=== PATIENT | male | born 1970 | race Caucasian/White ===

== ENCOUNTER 2017-11-02 21:14 | Inpatient (IN) | payer OTHER ==
[~2017-11-02] VITALS: Ht 168 cm; Wt 90.8 kg
--- NOTE | ~2017-11-02 | CON ---
[place], [place] REPORT OF CONSULTATION NAME: MERLENE BROWN UNIT #: [id number] ROOM: 515 DOCTOR: YOSEF BARRETT,OCTOBER BIRTHDATE: [birth year] DOS: 11/03/2017 HISTORY OF PRESENT ILLNESS: The patient is a 47-year-old male who originally presented with chest pain. He also has a rash of bilateral upper extremities that originally began on his left pinky and extends mainly over both forearms, a little on his upper arms, a couple of spots on the lower back and 2 spots on his forehead. The areas are itchy, quite a few of them are scabbed, not particularly painful. He has had no fevers or chills or sweats. He states he has had no new medications. The rash originally began approximately a week and a half ago. He states he has had no new medications. No change in detergents, lotions, etc. No new clothes that he has worn without washing. He does have a new bed, though he states he purchased it from a factory. He lives alone. No new issues. No issues with bed bugs to his knowledge. He denies any hobbies other than working on his [employer]. No working outside over the last few weeks. No new or different foods. The patient's chest pain has improved, but he has had elevated troponins. He is being worked up. At some point, he may be transferred to [place] or the [place] for cardiac cath. His Valtrex and doxycycline have both been ordered. There was concern for Lyme's as well as shingles. The patient has no pets and has not traveled anywhere recently. He is on medical disability from , served 22 years in the . He was discharged in 2010. PAST MEDICAL HISTORY: As above as well as appendectomy, arthroscopic knee surgery, arthroscopic shoulder surgery, cholecystectomy. SOCIAL HISTORY: He smokes 1-2 cigars per day since he was a teenager. No alcohol or illicit drug use. FAMILY MEDICAL HISTORY: Mother with diabetes. Father of stab wound, also had diabetes. ALLERGIES: No known allergies. LABORATORY DATA: WBCs 10.0, platelets 172. No elevation of his eosinophils or neutrophils. BUN 11, creatinine 0.82. Troponin 0.614. REVIEW OF SYSTEMS: As above in history of present illness. No fevers or chills. No night sweats. No issues with urination. No peripheral edema. No cough or shortness of breath. No peripheral edema. Further review of systems is unremarkable. CURRENT MEDICATIONS: Include doxycycline, Benadryl, Nicotrol, Valtrex, calamine, hydrocortisone topically, Lovenox, Lipitor, Restoril, Zofran, milk of mag, Dulcolax, [place], Tylenol, Vistaril, Nitrostat and aspirin. PHYSICAL EXAMINATION: VITAL SIGNS: Temperature 98.1, pulse 70, respirations 20, BP 117/73: GENERAL: A 47-year-old male, nontoxic in appearance. HEAD, EYES, EARS, NOSE AND THROAT: Normocephalic. No thrush. NECK: Supple. [place], [place] REPORT OF CONSULTATION NAME: MERLENE BROWN UNIT #: [id number] ROOM: [facility] [employer] DOCTOR: YOSEF BARRETTOCTOBER BIRTHDATE: [birth year] LUNGS: Clear to auscultation bilaterally. Respirations even and unlabored. HEART: Regular rhythm. No murmur appreciated. ABDOMEN: Soft, nondistended. EXTREMITIES: No edema or deformity. Bilateral upper extremities with rash, mainly concentrated over hands, forearms and outer lateral arms, on the upper arms. There are no signs of vesicles, no areas that would be suspicious for cellulitis. Also, he has a couple of spots on his lower back. They are raised red itchy bumps and 2 spots close to each other on his forehead. ASSESSMENT AND PLAN: Rash of unknown etiology. At this point, I would suspect a hypersensitivity reaction, though his differential does not have elevation of eosinophils. Certainly, nothing appears to be herpetic in nature or consistent with shingles. We will stop the Valtrex as well as the doxycycline. I have no suspicion of Lyme's. There is certainly no bull's eye lesion at this point as well as the patient denies any scenario in which he could have been exposed. Physical exam is more consistent with something along the lines of contact dermatitis with something like poison geno. Hepatitis panel and human immunodeficiency virus and tox screen have been ordered. A consideration should be given to administering steroids. If he is transferred, dermatologic workup would be recommended that is not available here at this point in time. Case discussed with Dr. Stephanie Cabello. MINDY ARNOLD NAVAS STEPHANIE CABELLO MD CM:CONSTR:REPORT OF CONSULTATION 1826 11/04/17 0254 interface
[2017-11-02 21:19] VITALS: BP 107/72
[2017-11-02 21:27] VITALS: BP 114/75
[2017-11-02 21:36] LABS: BASO # 0.1 10*3/uL (0.0-0.1); BASO % 0.7 % (0.0-1.0); EOS # 0.3 10*3/uL (0.0-0.4); EOS % 2.3 % (1.0-4.0); HEMATOCRIT 43.9 % (42.0-52.0); HEMOGLOBIN 15.1 g/dl (14.0-18.0); LYMPH % 24.8 % (27.0-41.0); MEAN CELL VOLUME 84.6 fl (80.0-94.0); MEAN CORPUSCULAR HGB 29.1 pg (27.0-31.0); MEAN CORPUSCULAR HGB CONC 34.4 g/dl (33.0-37.0); MEAN PLATELET VOLUME 10.6 fl (9.6-12.3); MONO % 7.8 % (3.0-9.0); NEUT # 7.9 10*3/uL (2.3-7.9); NEUT % 64.2 % (47.0-73.0); PLATELET COUNT AUTOMATED 186 10*3/uL (130-400); RED BLOOD COUNT 5.19 10*6/uL (4.50-5.90); RED CELL DISTRI WIDTH 14.9 % (0-14.5); WHITE BLOOD COUNT 12.2 10*3/uL (4.8-10.8)
[2017-11-02 21:51] LABS: ACT PARTIAL THROMBO TIME 25.1 SECONDS (20.8-31.5)
[2017-11-02 21:53] LABS: ALBUMIN 3.5 gm/dl (3.1-4.5); ALKALINE PHOSPHATASE 79 U/L (45-117); BUN 11 mg/dl (7-24); CHLORIDE 106 mmol/L (98-107); CREATININE 0.98 mg/dL (0.70-1.30); POTASSIUM 3.7 mmol/L (3.5-5.1); SGOT/AST 18 IU/L (3-35); SGPT/ALT 28 U/L (12-78); SODIUM 140 mmol/L (136-145); TOTAL PROTEIN 6.7 gm/dL (6.4-8.2)
[2017-11-02 22:00] LABS: TROPONIN I 0.251 ng/ml (<0.045)
[2017-11-02 22:01] VITALS: BP 110/71
[2017-11-02 22:22] VITALS: BP 99/40
[2017-11-02 23:30] VITALS: BP 97/68
[2017-11-03 03:16] LABS: BASO # 0.1 10*3/uL (0.0-0.1); BASO % 0.8 % (0.0-1.0); EOS # 0.3 10*3/uL (0.0-0.4); EOS % 3.1 % (1.0-4.0); HEMATOCRIT 42.9 % (42.0-52.0); HEMOGLOBIN 14.6 g/dl (14.0-18.0); LYMPH # 3.4 10*3/uL (1.3-4.4); LYMPH % 34.4 % (27.0-41.0); MEAN CELL VOLUME 85.1 fl (80.0-94.0); MEAN PLATELET VOLUME 10.3 fl (9.6-12.3); MONO # 0.8 10*3/uL (0.1-1.0); MONO % 8.4 % (3.0-9.0); NEUT # 5.3 10*3/uL (2.3-7.9); NEUT % 53.1 % (47.0-73.0); PLATELET COUNT AUTOMATED 172 10*3/uL (130-400); RED BLOOD COUNT 5.04 10*6/uL (4.50-5.90)
[2017-11-03 03:26] LABS: BUN 11 mg/dl (7-24); CHLORIDE 108 mmol/L (98-107); CREATININE 0.82 mg/dL (0.70-1.30); POTASSIUM 3.5 mmol/L (3.5-5.1); SODIUM 141 mmol/L (136-145)
[2017-11-03 03:31] LABS: CHOLESTEROL 132 mg/dL (<200); HDL CHOLESTEROL 25 mg/dl (40-60); LDL CHOLESTEROL 77 mg/dL (9-159); PHOSPHOROUS 3.4 mg/dL (2.5-4.9); TRIGLYCERIDES 151 mg/dl (<150); VLDL CHOLESTEROL 30 mg/dL (6-40)
[2017-11-03 06:37] LABS: VITAMIN D, 25-HYDROXY 24.1 ng/mL (30-100)
[2017-11-03 08:00] VITALS: BP 121/84
[2017-11-03 12:00] VITALS: BP 104/65
[2017-11-03 16:00] VITALS: BP 117/73
[2017-11-03 18:56] LABS: URINE AMPHETAMINES < 1000 (1000ng/ml); URINE BARBITURATES < 200 (200ng/ml); URINE BENZODIAZEPINES < 200 (200ng/ml); URINE CANNABINOIDS (THC) < 50 (50ng/ml); URINE COCAINE < 300 (300ng/ml); URINE METHADONE < 300 (300ng/ml); URINE OPIATES < 300 (300ng/ml)
[2017-11-03 19:02] LABS: URINE PHENCYCLIDINE < 25 (25ng/ml)
[2017-11-03 20:00] VITALS: BP 131/81
[2017-11-04] VITALS: BP 124/67
[2017-11-04 08:00] VITALS: BP 94/50
[2017-11-04 12:00] VITALS: BP 111/83
[2017-11-04] MEDS ORDERED: VITAMIN D-32000 UNI1 PO (14:52)
[2017-11-04 16:00] VITALS: BP 102/46
[2017-11-04 20:00] VITALS: BP 105/87
[2017-11-05] VITALS: BP 124/82
[2017-11-05 05:07] LABS: HEPATITIS B SURFACE AG Negative (Negative); HEPATITIS C VIRUS ANTIBODY <0.1 s/co (0.0-0.9)
[2017-11-05 07:05] LABS: HIV 1+2 AB + HIV1 P24 AG Non Reactive (Non Reactive)
== END 2017-11-05 07:48 | DRG 281 ==
LOC: ED 21:14 → 5E 22:42 → EDHOLD 22:42 → 5E 23:04
PROVIDERS: Emergency Medicine Emergency Medical Services; Hospitalist; Internal Medicine Cardiovascular Disease; Student in an Organized Health Care Education/Training Program
DX: I21.4 Non-ST elevation (NSTEMI) myocardial infarction (principal); J98.11 Atelectasis; E83.41 Hypermagnesemia; B01.9 Varicella without complication; W57.XXXA Bitten or stung by nonvenomous insect and other nonvenomous arthropods, initial encounter; F43.10 Post-traumatic stress disorder, unspecified; E78.1 Pure hyperglyceridemia; L50.9 Urticaria, unspecified; F17.200 Nicotine dependence, unspecified, uncomplicated; D72.829 Elevated white blood cell count, unspecified; D72.810 Lymphocytopenia; R73.9 Hyperglycemia, unspecified; F32.9 Major depressive disorder, single episode, unspecified; Y93.89 Activity, other specified; Y92.89 Other specified places as the place of occurrence of the external cause; Y99.8 Other external cause status; Z71.6 Tobacco abuse counseling; Z90.49 Acquired absence of other specified parts of digestive tract; Z83.3 Family history of diabetes mellitus; Z91.040 Latex allergy status

== ENCOUNTER 2018-02-14 20:20 | Emergency (ER) | payer OTHER ==
[~2018-02-14] VITALS: Ht 172.7 cm; Wt 86.2 kg
[~2018-02-14 20:20] MED LIST: VITAMIN D-32000 UNI1 PO
[2018-02-14] MEDS ORDERED: NORCO 5-325 TA1 EACH PO (22:39)
== END 2018-02-14 22:59 | disposition home or self-care (01) ==
LOC: ED 20:20
DX: S96.912A Strain of unspecified muscle and tendon at ankle and foot level, left foot, initial encounter (principal); F17.200 Nicotine dependence, unspecified, uncomplicated; Z91.040 Latex allergy status; V89.9XXA Person injured in unspecified vehicle accident, initial encounter; Y93.89 Activity, other specified; Y92.89 Other specified places as the place of occurrence of the external cause; Y99.8 Other external cause status

== ENCOUNTER 2018-09-23 00:07 | Inpatient (IN) | payer OTHER ==
[~2018-09-23] VITALS: Ht 172.7 cm; Wt 99.0 kg
[2018-09-23] VITALS (7 sets, daily range): BP systolic 102–154; BP diastolic 63–106
--- NOTE | ~2018-09-23 | EKG ---
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
--- NOTE | ~2018-09-23 | EKG ---
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
--- NOTE | ~2018-09-23 | EKG ---
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
[~2018-09-23 00:07] MED LIST changes: +NORCO 5-325 TA1 EACH PO
[2018-09-23 00:40] LABS: BASO # 0.1 10*3/uL (0.0-0.1); BASO % 0.7 % (0.0-1.0); EOS # 0.3 10*3/uL (0.0-0.4); EOS % 1.5 % (1.0-4.0); HEMATOCRIT 47.6 % (42.0-52.0); HEMOGLOBIN 16.1 g/dl (14.0-18.0); LYMPH # 2.1 10*3/uL (1.3-4.4); LYMPH % 12.2 % (27.0-41.0); MEAN CELL VOLUME 86.7 fl (80.0-94.0); MEAN CORPUSCULAR HGB 29.3 pg (27.0-31.0); MEAN CORPUSCULAR HGB CONC 33.8 g/dl (33.0-37.0); MEAN PLATELET VOLUME 10.7 fl (9.6-12.3); MONO # 1.5 10*3/uL (0.1-1.0); MONO % 8.6 % (3.0-9.0); NEUT # 13.4 10*3/uL (2.3-7.9); NEUT % 76.7 % (47.0-73.0); PLATELET COUNT AUTOMATED 187 10*3/uL (130-400); RED BLOOD COUNT 5.49 10*6/uL (4.50-5.90); WHITE BLOOD COUNT 17.5 10*3/uL (4.8-10.8)
[2018-09-23 00:50] LABS: ACT PARTIAL THROMBO TIME 25.5 SECONDS (20.8-31.5); INTERNATIONAL NORM RATIO 0.9 (2.0-3.5)
[2018-09-23 01:09] LABS: ALBUMIN 3.4 gm/dl (3.1-4.5); ALKALINE PHOSPHATASE 75 U/L (45-117); BUN 12 mg/dl (7-24); CHLORIDE 106 mmol/L (98-107); CREATININE 1.02 mg/dL (0.70-1.30); POTASSIUM 3.9 mmol/L (3.5-5.1); SGOT/AST 15 IU/L (3-35); SGPT/ALT 35 U/L (12-78); SODIUM 139 mmol/L (136-145)
[2018-09-23 01:10] LABS: TROPONIN I < 0.015 ng/ml (<0.045)
[2018-09-23 03:08] LABS: BILIRUBIN NEGATIVE (NEGATIVE); BLOOD NEGATIVE (NEGATIVE); CLARITY CLEAR (CLEAR); COLOR YELLOW (YELLOW); GLUCOSE NEGATIVE (NEGATIVE); KETONE NEGATIVE (NEGATIVE); LEUKO ESTERASE NEGATIVE (NEGATIVE); NITRITE NEGATIVE (NEGATIVE); PH 5.5 (5.0-9.0); SPECIFIC GRAVITY 1.025 (1.005-1.030); UROBILINOGEN 0.2 E.U./dl (0.2-1.0)
[2018-09-23 03:25] LABS: WBC 0-2 wbc/hpf (0-5)
[2018-09-23 06:13] LABS: BASO # 0.1 10*3/uL (0.0-0.1); BASO % 0.7 % (0.0-1.0); EOS # 0.2 10*3/uL (0.0-0.4); EOS % 1.7 % (1.0-4.0); HEMATOCRIT 45.2 % (42.0-52.0); HEMOGLOBIN 14.7 g/dl (14.0-18.0); LYMPH # 2.6 10*3/uL (1.3-4.4); LYMPH % 18.8 % (27.0-41.0); MEAN CELL VOLUME 87.9 fl (80.0-94.0); MEAN CORPUSCULAR HGB 28.6 pg (27.0-31.0); MEAN CORPUSCULAR HGB CONC 32.5 g/dl (33.0-37.0); MEAN PLATELET VOLUME 10.8 fl (9.6-12.3); MONO # 1.2 10*3/uL (0.1-1.0); MONO % 8.5 % (3.0-9.0); NEUT # 9.6 10*3/uL (2.3-7.9); PLATELET COUNT AUTOMATED 155 10*3/uL (130-400); RED BLOOD COUNT 5.14 10*6/uL (4.50-5.90); WHITE BLOOD COUNT 13.7 10*3/uL (4.8-10.8)
[2018-09-23 06:42] LABS: ALBUMIN 3.1 gm/dl (3.1-4.5); BUN 14 mg/dl (7-24); CHLORIDE 106 mmol/L (98-107); POTASSIUM 3.9 mmol/L (3.5-5.1); SODIUM 138 mmol/L (136-145)
[2018-09-23 06:50] LABS: ALKALINE PHOSPHATASE 68 U/L (45-117); CHOLESTEROL 127 mg/dL (<200); CREATININE 0.98 mg/dL (0.70-1.30); HDL CHOLESTEROL 26 mg/dl (40-60); LDL CHOLESTEROL 63 mg/dL (9-159); PHOSPHOROUS 4.6 mg/dL (2.5-4.9); SGOT/AST 11 IU/L (3-35); SGPT/ALT 30 U/L (12-78); TOTAL PROTEIN 6.3 gm/dL (6.4-8.2); TRIGLYCERIDES 189 mg/dl (<150); VLDL CHOLESTEROL 38 mg/dL (6-40)
[2018-09-23] MEDS ORDERED: ASPIRIN81 M1 PO (11:45)
[2018-09-23] MEDS ORDERED: ATORVASTATIN CA80 M1 PO (11:45)
[2018-09-23] MEDS ORDERED: METOPROLOL SUCC50 M1 PO (11:46)
[2018-09-23] MEDS ORDERED: BRILINTA90 M1 PO (11:47)
[2018-09-23] MEDS ORDERED: VENLAFAXINE75 M1 PO (11:47)
[2018-09-23] MEDS ORDERED: SEROQUEL XR400 MG PO (11:47)
[2018-09-23] MEDS ORDERED: VITAMIN D32000 UNI1 PO (12:11)
[2018-09-23 12:37] LABS: CHOLESTEROL 135 mg/dL (<200); HDL CHOLESTEROL 28 mg/dl (40-60); LDL CHOLESTEROL 75 mg/dL (9-159); TRIGLYCERIDES 162 mg/dl (<150); VLDL CHOLESTEROL 32 mg/dL (6-40)
== END 2018-09-23 13:39 | disposition home or self-care (01) | DRG 313 ==
LOC: ED 00:07 → EDHOLD 01:05 → 4E 01:58
PROVIDERS: Family Medicine; Internal Medicine Cardiovascular Disease; Student in an Organized Health Care Education/Training Program; ADMIT Emergency Medicine
DX: R07.89 Other chest pain (principal); R65.10 Systemic inflammatory response syndrome (SIRS) of non-infectious origin without acute organ dysfunction; F17.210 Nicotine dependence, cigarettes, uncomplicated; E78.1 Pure hyperglyceridemia; R73.9 Hyperglycemia, unspecified; I25.2 Old myocardial infarction; Z90.49 Acquired absence of other specified parts of digestive tract; Z83.3 Family history of diabetes mellitus; Z91.030 Bee allergy status; Z79.899 Other long term (current) drug therapy; Z79.82 Long term (current) use of aspirin; Z71.6 Tobacco abuse counseling; Z68.33 Body mass index [BMI] 33.0-33.9, adult; Z79.1 Long term (current) use of non-steroidal anti-inflammatories (NSAID); Z95.5 Presence of coronary angioplasty implant and graft

== ENCOUNTER 2019-01-09 20:24 | Emergency (ER) | payer OTHER ==
[~2019-01-09] VITALS: Wt 104.3 kg
[~2019-01-09 20:24] MED LIST changes: +ASPIRIN81 M1 PO; +ATORVASTATIN CA80 M1 PO; +BRILINTA90 M1 PO; +METOPROLOL SUCC50 M1 PO; +SEROQUEL XR400 MG PO; +VENLAFAXINE75 M1 PO; +VITAMIN D32000 UNI1 PO
[2019-01-09] MEDS ORDERED: CEPHALEXIN500 M1 PO (20:59)
== END 2019-01-09 21:54 | disposition home or self-care (01) ==
LOC: ED 20:24
DX: S61.032A Puncture wound without foreign body of left thumb without damage to nail, initial encounter (principal); E78.1 Pure hyperglyceridemia; I25.2 Old myocardial infarction; F17.210 Nicotine dependence, cigarettes, uncomplicated; Z90.49 Acquired absence of other specified parts of digestive tract; Z91.030 Bee allergy status; Z79.899 Other long term (current) drug therapy; Z79.82 Long term (current) use of aspirin; W22.8XXA Striking against or struck by other objects, initial encounter; Y93.89 Activity, other specified; Y92.89 Other specified places as the place of occurrence of the external cause; Y99.8 Other external cause status

== ENCOUNTER 2019-04-27 13:47 | Emergency (ER) | payer OTHER ==
[~2019-04-27] VITALS: Ht 172.7 cm; Wt 88.5 kg
[~2019-04-27 13:47] MED LIST changes: +CEPHALEXIN500 M1 PO
[2019-04-27 14:48] LABS: BASO # 0.1 10*3/uL (0.0-0.1); BASO % 0.9 % (0.0-1.0); EOS # 0.2 10*3/uL (0.0-0.4); HEMATOCRIT 46.2 % (42.0-52.0); HEMOGLOBIN 15.2 g/dl (14.0-18.0); LYMPH % 27.9 % (27.0-41.0); MEAN CELL VOLUME 86.2 fl (80.0-94.0); MEAN CORPUSCULAR HGB 28.4 pg (27.0-31.0); MEAN CORPUSCULAR HGB CONC 32.9 g/dl (33.0-37.0); MEAN PLATELET VOLUME 10.9 fl (9.6-12.3); MONO # 0.9 10*3/uL (0.1-1.0); MONO % 8.2 % (3.0-9.0); NEUT # 6.5 10*3/uL (2.3-7.9); NEUT % 60.5 % (47.0-73.0); PLATELET COUNT AUTOMATED 194 10*3/uL (130-400); RED BLOOD COUNT 5.36 10*6/uL (4.50-5.90); RED CELL DISTRI WIDTH 15.5 % (0-14.5); WHITE BLOOD COUNT 10.7 10*3/uL (4.8-10.8)
[2019-04-27 15:01] LABS: ALBUMIN 3.5 gm/dl (3.1-4.5); ALKALINE PHOSPHATASE 82 U/L (45-117); BUN 12 mg/dl (7-24); CHLORIDE 109 mmol/L (98-107); CREATININE 0.95 mg/dL (0.70-1.30); POTASSIUM 3.9 mmol/L (3.5-5.1); SGOT/AST 12 IU/L (3-35); SGPT/ALT 30 U/L (12-78); SODIUM 139 mmol/L (136-145); TOTAL PROTEIN 7.1 gm/dL (6.4-8.2)
[2019-04-27] MEDS ORDERED: MOBIC7.5 MG PO (15:47)
== END 2019-04-27 15:58 | disposition home or self-care (01) ==
LOC: ED 13:47
PROVIDERS: Physician Assistant
DX: M25.561 Pain in right knee (principal); M79.89 Other specified soft tissue disorders; F17.210 Nicotine dependence, cigarettes, uncomplicated; Z91.030 Bee allergy status; Z79.82 Long term (current) use of aspirin; Z79.899 Other long term (current) drug therapy; Z90.49 Acquired absence of other specified parts of digestive tract